=== PATIENT | male | born 1985 | race Hispanic/Latino ===

== ENCOUNTER 2017-04-04 09:07 | Emergency (ER) | payer SELFPAY ==
[~2017-04-04] VITALS: Ht 172.7 cm; Wt 72.6 kg
[2017-04-04 09:11] VITALS: BP 147/87
[2017-04-04] MEDS ORDERED: ULTRAM50 M1 PO (09:24)
[2017-04-04] MEDS ORDERED: IBUPROFEN600 M1 PO (09:24)
[2017-04-04] MEDS ORDERED: ANTIBIOTIC OINT28 GM TOP (09:24)
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
== END 2017-04-04 09:34 ==
LOC: ERH 09:07
DX: T25.221A Burn of second degree of right foot, initial encounter (principal); X10.2XXA Contact with fats and cooking oils, initial encounter; Y92.9 Unspecified place or not applicable; Y93.9 Activity, unspecified